=== PATIENT | male | born 1935 | race Caucasian/White ===

== ENCOUNTER 2023-10-02 21:39 | Emergency (ER) | payer MEDICARE, SELFPAY ==
[2023-10-02 21:40] VITALS: BMI 36.8
[2023-10-02 21:41] VITALS: BP 171/66
--- NOTE | 2023-10-02 22:07 | ED.GENMED ---
History of Present Illness
General
Chief Complaint: Chest Pain
Source: patient
Time Seen by Provider: 10/02/23 21:53
History of Present Illness
History of Present Illness:
88-year-old male presents to the emergency room for evaluation of chest pain. Patient has been experiencing chest discomfort left anterior chest for the past couple days. He describes it as a sharp pain which when it is there last for a second or
2. It does not seem to be related to activity. He is able to walk throughout the house and ascend a flight of steps without chest pain. He does become short of breath but he does not feel like this is gotten worse in the recent past. No recent
travel. Patient does not see a financial aid administrator.
Phy Exam
Physical Exam
Physical Exam:
General: Awake, Alert, Oriented X3. No acute distress.
Vitals: unremarkable
Head: Atraumatic
Eyes: Pupils equal, EOMI
Throat: Airway intact, no exudates
Neck: Trachea midline
Lungs: Clear and equal b/l
Heart: Regular rate, no murmurs
Abd: Soft, protuberant abdomen, nontender, No pulsatile mass
Neuro: Nonfocal
Skin: Warm, dry, no rash
Extremities: pulses equal b/l, no edema
Scores
Heart Score for Chest Pain Patients
STEMI patient?: No
History: Slightly or Non-Suspicious
ECG: Normal
Age: >/= 65 years
Risk Factors: 1 or 2 Risk Factors
Troponin: </= Normal Limit
Heart Score for Chest Pain Patients: 3
Heart Score Risk: 2.5% MACE over next 6 weeks
Course
Orders/Labs/Results
Orders:
Orders
10/02/23 21:41
Electrocardiogram (*1) Urgent
Reason for Study: Chest Pain
EKG- Treatment ONCE
10/02/23 22:07
CR Chest - 2 Views Urgent
Comment:
Reason For Exam: chest pain
10/02/23 22:13
CMP [Comprehensive Metabolic Panel] Urgent
Complete Blood Count/With Diff Urgent
Troponin I Urgent
10/02/23 23:55
Troponin I Urgent
Abnormal Lab Results
10/02/23
22:13
RBC 3.38 L 10^6/uL
(4.70-6.10)
Hgb 11.6 L g/dL
(13.0-18.0)
Hct 33.2 L %
(39.0-52.0)
MCV 98.2 H fL
(80.0-94.0)
MCH 34.3 H pg
(27.0-31.0)
RDW 14.6 H %
(11.5-14.5)
Absolute Lymphs (auto) 3.8 H 10^3/uL
(1.2-3.4)
Absolute Monos (auto) 0.7 H 10^3/uL
(0.1-0.6)
BUN 32 H mg/dl
(9-20)
Creatinine 1.5 H mg/dL
(0.7-1.3)
Glucose 108 H mg/dl
(70-99)
10/02/23 22:13
10/02/23 22:13
Vital Signs
Initial and Last Documented VS:
Initial Vital Signs
Temp Pulse Resp BP Pulse Ox
98.2 F 74 24 171/66 97
10/02/23 21:41 10/02/23 21:41 10/02/23 21:41 10/02/23 21:41 10/02/23 21:41
Last Documented Vital Signs
Temp Pulse Resp BP Pulse Ox
98.2 F 58 13 153/60 96
10/02/23 21:41 10/03/23 01:15 10/03/23 01:15 10/03/23 01:00 10/03/23 01:15
MDM/Problems Addressed
Differential Diagnosis Includes:
Chest wall pain, ACS, pneumothorax
MDM/Problems Addressed:
Labs show mild elevation of creatinine. Troponins negative x 2. Chest x-ray shows no acute abnormality. Patient's chest discomfort is very likely musculoskeletal in nature. Certainly with 2 negative troponins CAD is highly unlikely. Patient
stable for discharge home and outpatient follow-up
Chronic conditions affecting care: HTN
*Radiology
Radiology exam reviewed: preliminary read by ED provider (Personally viewed the patient's chest x-ray see no acute disease)
*Pulse Oximetry
Patient hypoxic: no
*EKG
Interpreted by ED Provider?: Yes
Interpretation: normal
Heart Rate: 88
Rate: normal
Rhythm: sinus
[place]: normal axis
Interval: first degree heart block
QRS Pattern: normal QRS
Ischemia: no ischemia
*Athletic Monitor Interpretation
Rate: normal
Interpretation: normal
Rhythm: sinus
*Critical Care Note
Total Time (30-74mins, 75-104mins- exclusive of procedures): Not Applicable
ED Attending Note
-
Portions of this chart may have been created with voice recognition software.� Occasional wrong word or��sound alike� substitutions may have occurred due to the inherent limitations of voice recognition software.
Discharge Plan
Departure
Patient Disposition: Home (Routine Discharge)
Date of Disposition: 10/03/23
Time of Disposition: 01:22
Patient with high blood pressure during this ER visit?: Yes
Condition: Good
Discharge Problem:
Chest pain
Instructions: Chest Pain DCA Follow Up, BLOOD PRESSURE
Referrals:
Dilan Wise DO [Family Provider] -
Interventions
Interventions:
*Risk Screen - Suicide Last Done: 10/02/23 21:41
*General Assessment Last Done: 10/03/23 01:42
*Neglect/Abuse Screening Last Done: 10/02/23 21:41
ED- Fall Risk Assessment Last Done: 10/03/23 00:13
*ED COVID-19 Vaccine History Last Done: 10/03/23 01:42
*Nursing Disposition Last Done: 10/03/23 01:42
ED- Cardiac Assessment Last Done: 10/03/23 00:13
Discharge Date and Time
Discharge Date/Time: 10/03/23 01:43
Print Language: MALTESE
[2023-10-02 22:23] LABS: % Basophils 0.6 % (0-2); % Eosinophils 1.5 % (0-6); % Immature Granulocytes 0.2 % (0-0.5); % Monocytes 7.4 % (1.7-9.3); % Neutrophils 49.3 % (42.2-75.2); Absolute Basophils 0.1 10^3/uL (0-0.2); Absolute Eosinophils 0.1 10^3/uL (0-0.7); Absolute Lymphocytes 3.8 10^3/uL (1.2-3.4); Absolute Monocytes 0.7 10^3/uL (0.1-0.6); Absolute Neutrophils 4.6 10^3/uL (1.4-6.5); Hematocrit 33.2 % (39.0-52.0); Hemoglobin 11.6 g/dL (13.0-18.0); Mean Corp Hgb Conc. 34.9 g/dL (33.0-37.0); Mean Corpuscular Hgb 34.3 pg (27.0-31.0); Mean Corpuscular Volume 98.2 fL (80.0-94.0); Mean Platelet Volume 8.8 fL (7.4-10.4); Nucleated Red Blood Cells % 0 % (-); Platelet Count 218 10^3/uL (130-400); Red Blood Cell Count 3.38 10^6/uL (4.70-6.10); Red Cell Dist. Width 14.6 % (11.5-14.5); White Blood Cell Count 9.3 10^3/uL (4.8-10.8)
[2023-10-02 22:36] LABS: ALT (SGPT) 18 U/L (0-50); AST (SGOT) 24 U/L (17-59); Alkaline Phosphatase 107 U/L (38-126); Blood Urea Nitrogen 32 mg/dl (9-20); Calcium 9.9 mg/dl (8.4-10.2); Carbon Dioxide 26 mmol/L (22-30); Chloride 104 mmol/L (98-107); Estimated Creatinine Clearance 42 ml/min; Glucose 108 mg/dl (70-99); Potassium 4.2 mmol/L (3.5-5.1); Sodium 140 mmol/L (135-145); Total Bilirubin 0.6 mg/dl (0.2-1.3); Total Protein 6.8 g/dl (6.3-8.2)
[2023-10-02 22:47] LABS: Troponin I < 0.012 ng/ml
[2023-10-03 00:32] VITALS: BP 163/66
[2023-10-03 01:00] VITALS: BP 153/60
[2023-10-03 01:10] LABS: Troponin I < 0.012 ng/ml
== END 2023-10-03 01:43 | disposition home or self-care (01) ==
LOC: EMR 21:39
PROVIDERS: Emergency Medicine; EMERGENCY PHYSICIAN Emergency Medicine; FAMILY PHYSICIAN Student in an Organized Health Care Education/Training Program
DX: R07.89 Other chest pain (principal)
CPT/HCPCS: 99283; 71046; 80053; 84484; 85025; 93005

== ENCOUNTER → 2023-11-10 12:45 | Outpatient (REF) | payer MEDICARE, OTHER, SELFPAY | LOC: RCS 12:45 | PROVIDERS: ATTENDING PHYSICIAN Internal Medicine Cardiovascular Disease; FAMILY PHYSICIAN Student in an Organized Health Care Education/Training Program | DX: R06.09 Other forms of dyspnea (principal) | CPT/HCPCS: 93306 ==